=== PATIENT | female | born 1980 | race Caucasian/White ===

== ENCOUNTER 2023-06-09 15:21 | Emergency (ER) | payer BC ==
[~2023-06-09] VITALS: Ht 160 cm; Wt 75.0 kg
[2023-06-09 15:40] VITALS: BP 105/69; PULSE 105; RESP 16; TEMP 98.3; O2SAT 100
== END 2023-06-09 16:51 | disposition home or self-care (01) ==
LOC: ER 15:22
DX: J06.9 Acute upper respiratory infection, unspecified (principal); Z98.890 Other specified postprocedural states
CPT/HCPCS: 71046; 99283

== ENCOUNTER 2025-06-20 16:29 | Emergency (ER) | payer BC ==
[~2025-06-20] VITALS: Ht 160 cm; Wt 66.0 kg
--- NOTE | 2025-06-20 17:09 | Physician Documentation ---
History of Present Illness ~ Chief Complaint: Leg Pain Stated Complaint: L LEG PAIN/SWELLING Time Seen by MD: 17:37 Primary Medical Doctor: [facility] HPI Patient is a 45-year-old female that presents to the emergency department with left lower extremity pain and warmth. Patient reports that she has had pain over the last month intermittently. Concerned for clots. No predisposing factors. Reports that she is an active woman that have extended periods of sedentary activity. No fevers nausea vomiting diarrhea at this time. Tetanus witin 5 years: Yes Medication Reconciliation Allergies: Coded Allergies: No Known Allergies (Unverified , 06/09/23) Past Medical History Past Surgical History: other Alcohol Use: None Drug Use: none Lives with: Family Lives In: Home Occupation: employed Review of Systems ROS As stated above in the HPI, otherwise all systems are reviewed and negative. Physical Exam Vital Signs: Temperature: 98.2, Source: Temporal, Heart Rate: 90, Respiratory Rate: 16, BP: 131/80, Pulse Oximetry: 99, Weight: 66.050 Oxygen Flow Rate: 0 Physical Exam VITALS: Reviewed and as above. GENERAL: Alert, no apparent distress. HEENT: Normocephalic, atraumatic, PERRL, EOMI, dry mucosa, no erythema RESPIRATORY: Lungs clear, normal breath sounds, no respiratory distress. CHEST: No accessory muscle use, no retractions CV: Regular rate, rhythm, no edema, no murmur, No: JVD GI: Soft, non-tender, bowels sounds present, no rebound, guarding, or rigidity BACK: No CVA tenderness, or swelling MUSCULOSKELETAL No deformities, mild edema noted to the lower left extremity. SKIN: Warm and dry, no rash, warmth noted to the lower left extremity NEURO: Oriented x4, No motor or sensory deficit PSYCH: Normal mood and affect, no agitation Progress Results/Orders Results/Orders Orders - LUANNE NAVAS Venous (06/20/25 16:49) Completed Orders - LUANNE NAVAS Venous (06/20/25 16:49) Medical Decision Making Findings This patient presents with initial presentation of local warmth, swelling concerning for DVT. Sensitivity/pain to light touch around the erythematous area. No lymphangitic spread visible and no fluid pockets or fluctuance concerning for abscess noted. Low concern for osteomyelitis. No immune compromise, bullae, pain out of proportion, or rapid progression concerning for necrotizing fasciitis. Extent of the examination and vascular ultrasound imaging, low concern for DVT at this time. Patient will follow up with her primary care provider. Return to the emergency department if any worsening have recurrent symptoms or any additional concerning symptoms present that we discussed her today. Departure Disposition: HOME / SELF CARE / HOMELESS Impression: Primary Impression: Muscle strain Additional Impression: Swelling of lower extremity Discharge Instructions: Muscle Strain, [id number] Additional Instructions: Seen in the emergency department for evaluation of lower left extremity edema accompanied warmth. We did a DVT rule out for you today that included physical examination in vascular ultrasound imaging. Examination imaging were negative for any abnormal or concerning findings at this time. Please follow up with y our primary care provider. He has returned to the emergency department if you have any worsening or recurrent symptoms or any additional concerning symptoms and we discussed her today. Referrals: NO PRIMARY CARE PROVIDER (PCP) Education Educated: Patient Educated regarding: diagnosis, treatment, need for follow up Signature Scribe Signature: A Attestation: Scribed for Luanne Navas by TRICIA Whitney . 06/25/25 15:25 LUANNE NAVAS Jun 20, 2025 17:09
[2025-06-20 17:43] VITALS: BP 99/55; PULSE 67; RESP 16; TEMP 98.2; O2SAT 99
--- NOTE | 2025-06-20 18:04 | VASCULAR REPORT ---
Procedure: [facility] VL VENOUS [facility] Study Date and Requested Time: 06/20/2025 05:04 PM History: Left calf pain Comparison: None Technique: Multiple high resolution milligan-scale images with and without compression obtained of the le ft lower extremity veins, including the common femoral vein, deep femoral vein, proximal mid and dist al superficial femoral vein, and popliteal vein. Additional limited images of the greater saphenous v ein also obtained. Augmentation performed as indicated. Color and spectral doppler flow images obtain ed as indicated. Findings: No visible intraluminal venous thrombus. No evidence of incompressibility or abnormal color or spectr al Doppler flow visualized in the left lower extremity veins including, the common femoral vein, deep femoral vein, proximal mid and distal superficial femoral vein, and popliteal vein. Greater saphenou s vein grossly unremarkable. The right common femoral vein is patent. Impression: No sonographic evidence of left lower extremity deep venous thrombosis.
== END 2025-06-20 17:45 | disposition home or self-care (01) ==
LOC: ER 16:30
DX: S86.812A Strain of other muscle(s) and tendon(s) at lower leg level, left leg, initial encounter (principal); M79.89 Other specified soft tissue disorders; X58.XXXA Exposure to other specified factors, initial encounter; Y93.89 Activity, other specified; Y92.89 Other specified places as the place of occurrence of the external cause; Y99.8 Other external cause status
CPT/HCPCS: 93971; 99284; A6449